=== PATIENT | female | born 1965 | race Caucasian/White ===

== ENCOUNTER 2020-04-15 14:19 | Emergency (ER) | payer OTHER ==
[2020-04-15 15:00] LABS: BASOPHILS % (AUTO) 0.7 %; EOSINOPHILS # (AUTO) 0.2 10^3/uL (0.0-0.7); EOSINOPHILS % (AUTO) 3.4 %; HGB - HEMOGLOBIN 14.1 g/dL (12.0-16.0); LYMPHOCYTES # (AUTO) 2.7 10^3/uL (1.5-3.5); LYMPHOCYTES % (AUTO) 45.8 %; MEAN CORPUSCULAR HEMOGLOBIN 30.2 pg (27.0-31.0); MEAN CORPUSCULAR HGB CONC 33.7 g/dL (32.0-36.0); MEAN CORPUSCULAR VOLUME 89.7 fL (81.0-99.0); MEAN PLATELET VOLUME 8.7 fL (7.9-10.8); MONOCYTES # (AUTO) 0.5 10^3/uL (0.0-1.0); MONOCYTES % (AUTO) 7.7 %; NEUTROPHILS # (AUTO) 2.5 10^3/uL (1.5-6.6); NEUTROPHILS % (AUTO) 42.1 %; PLT - PLATELET COUNT 292 10^3/uL (130-450); RED BLOOD COUNT 4.67 10^6/uL (4.20-5.40); RED CELL DISTRIBUTION WIDTH 13.6 % (12.0-15.0); WHITE BLOOD COUNT 5.9 x10^3/uL (4.8-10.8)
[2020-04-15 15:10] LABS: ALBUMIN 4.5 g/dL (3.2-5.5); ALBUMIN/GLOBULIN RATIO 1.3 (1.0-2.2); BILIRUBIN,TOTAL 1.5 mg/dL (0.2-1.0); CALCIUM 9.8 mg/dL (8.5-10.3); CREATININE 0.7 mg/dL (0.4-1.0); TOTAL PROTEIN 7.9 g/dL (6.7-8.2)
[2020-04-15 15:21] LABS: BILIRUBIN,URINE NEGATIVE (NEGATIVE); GLUCOSE, URINE (UA) NEGATIVE (NEGATIVE); KETONES,URINE (UA) NEGATIVE (NEGATIVE); LEUKOCYTE ESTERASE, URINE TRACE (NEGATIVE); NITRITE,URINE NEGATIVE (NEGATIVE); OCCULT BLOOD,URINE TRACE-INTA (NEGATIVE); PH,URINE 5.5 PH (5.0-7.5); PROTEIN,URINE NEGATIVE (NEGATIVE); UROBILINOGEN,URINE 0.2 (NORMAL) E.U./dL (NORMAL)
[2020-04-15 15:23] LABS: CLARITY,URINE CLEAR (CLEAR)
[2020-04-15 15:45] LABS: BACTERIA,URINE None Seen /HPF (None Seen); RBC,URINE 0-5 /HPF (0-5); SQUAMOUS EPITHELIAL CELL,UR RARE Squamous (<= Few)
--- NOTE | 2020-04-15 17:39 | ED Physician Documentation ---
History of Present Illness - Stated complaint Stated Complaint: ABD PX - RT SIDE - Chief complaint Chief Complaint: Abd Pain - History obtained from History obtained from: Patient, Family - History of Present Illness Timing: How many days ago (5) Pain level max: 5 Pain level now: 3 - Additonal information Additional information: RLQ abd/pelvic pain for 5 days. Patient states that she has been menopausal for approximately 5 years. No vomiting. No diarrhea. Nothing makes it better or worse. Has a history of a right-sided [place] No follow-up was performed. No vaginal bleeding or spotting. Nothing makes it better or worse Review of Systems Constitutional: denies: Fever, Chills GI: denies: Vomiting, Diarrhea : reports: Other (No changes in sexual partners). denies: Dysuria, Frequency, Hesitancy, Hematuria, Discharge, Vaginal bleeding Skin: denies: Rash Musculoskeletal: denies: Neck pain, Back pain Neurologic: denies: Headache PD PAST MEDICAL HISTORY - Past Medical History Past Medical History: No - Past Surgical History Past Surgical History: No - Allergies Allergies/Adverse Reactions: Allergies Allergy/AdvReac Type Severity Reaction Status Date / Time No Known Drug Allergies Allergy Verified 04/15/20 14:27 - Living Situation Living Situation: reports: With family Living Arrangement: reports: At home - Social History Does the pt smoke?: No Does the pt have substance abuse?: No - Family History Family history: reports: Non contributory PD ED PE NORMAL - Vitals Vital signs reviewed: Yes - General General: Alert and oriented X 3, No acute distress, Well developed/nourished - HEENT HEENT: Moist mucous membranes, Pharynx benign - Neck Neck: Supple, no meningeal sign - Cardiac Cardiac: RRR, Strong equal pulses - Respiratory Respiratory: No respiratory distress, Clear bilaterally - Abdomen Abdomen: Soft, Non distended, Other (Tender to palpation right lower quadrant and right pelvic. No peritoneal signs.) - Back Back: No spinal TTP - Derm Derm: Warm and dry - Extremities Extremities: No edema, No calf tenderness / cord - Neuro Neuro: Alert and oriented X 3 - Psych Psych: Normal mood, Normal affect Results - Vitals Vitals: Vital Signs - 24 hr 04/15/20 04/15/20 04/15/20 14:28 16:30 19:19 Temperature 37 C Heart Rate 74 76 66 Respiratory 16 16 18 Rate Blood Pressure 150/72 H 128/76 137/88 H O2 Saturation 99 100 98 04/15/20 19:45 Temperature Heart Rate 63 Respiratory 18 Rate Blood Pressure 129/86 H O2 Saturation 98 Oxygen O2 Source Room air - Labs Labs: Laboratory Tests 04/15/20 04/15/20 04/15/20 14:50 14:50 14:50 WBC 5.9 RBC 4.67 Hgb 14.1 Hct 41.9 MCV 89.7 MCH 30.2 MCHC 33.7 RDW 13.6 Plt Count 292 MPV 8.7 Neut # (Auto) 2.5 Lymph # (Auto) 2.7 [place] # (Auto) 0.5 Eos # (Auto) 0.2 Baso # (Auto) 0.0 Absolute Nucleated RBC 0.00 Nucleated RBC % 0.0 Sodium 139 Potassium 3.8 Chloride 102 Carbon Dioxide 26 Anion Gap 11.0 BUN 13 Creatinine 0.7 Estimated GFR (MDRD) 87 L Glucose 90 Calcium 9.8 Total Bilirubin 1.5 H AST 19 ALT 26 Alkaline Phosphatase 53 Total Protein 7.9 Albumin 4.5 Globulin 3.4 Albumin/Globulin Ratio 1.3 Lipase 34 CA 125 Antigen 7.5 Urine Color Urine Clarity Urine pH Ur Specific Tow Urine Protein Urine Glucose (UA) Urine Ketones Urine Occult Blood Urine Nitrite Urine Bilirubin Urine Urobilinogen Ur Leukocyte Esterase Urine RBC Urine WBC Ur Squamous Epith Cells Urine Bacteria Ur Microscopic Review Urine Culture Comments 04/15/20 15:13 WBC RBC Hgb Hct MCV MCH MCHC RDW Plt Count MPV Neut # (Auto) Lymph # (Auto) [place] # (Auto) Eos # (Auto) Baso # (Auto) Absolute Nucleated RBC Nucleated RBC % Sodium Potassium Chloride Carbon Dioxide Anion Gap BUN Creatinine Estimated GFR (MDRD) Glucose Calcium Total Bilirubin AST ALT Alkaline Phosphatase Total Protein Albumin Globulin Albumin/Globulin Ratio Lipase CA 125 Antigen Urine Color YELLOW Urine Clarity CLEAR Urine pH 5.5 Ur Specific Tow <=1.005 Urine Protein NEGATIVE Urine Glucose (UA) NEGATIVE Urine Ketones NEGATIVE Urine Occult Blood TRACE-INTA Urine Nitrite NEGATIVE Urine Bilirubin NEGATIVE Urine Urobilinogen 0.2 (NORMAL) Ur Leukocyte Esterase TRACE H Urine RBC 0-5 Urine WBC 4-5 Ur Squamous Epith Cells RARE Squamous Urine Bacteria None Seen Ur Microscopic Review INDICATED Urine Culture Comments INDICATED - Rads (name of study) Pelvic ultrasound Radiology: Prelim report reviewed, EMP read contemporaneously, See rad report (No acute abnormality) CT abdomen pelvis Radiology: Prelim report reviewed, EMP read contemporaneously, See rad report (N o acute abnormality) PD MEDICAL DECISION MAKING - ED course Complexity details: reviewed results, re-evaluated patient, considered dif ferential, d/w patient, d/w family ED course: 54-year-old female with abdominal pain. Unclear etiology. No acute lab findings. No acute findings on CT or ultrasound. We will continue supportive care and have her follow-up with her doctor for further care. Patient is well- appearing, nontoxic. Afebrile. Patient counseled regarding signs and symptoms for which I believe and urgent re-evaluation would be necessary. Patient with good understanding of and agreement to plan and is comfortable going home at this time This document was made in part using voice recognition software. While efforts are made to proofread this document, sound alike and grammatical errors may occur. Departure - Departure Disposition: 01 Home, Self Care Clinical Impression: Abdominal pain Qualifiers: Abdominal location: unspecified location Qualified Code(s): R10.9 - Unspecified abdominal pain Condition: Good Instructions: ED Abdominal Pain Unkn Cause Follow-Up: Your,doctor in 1 week [Other] Comments: The cause of your symptoms is unclear. There are no acute findings on your laboratory testing, CT scan or ultrasound. This should improve over the next few days. Return if you worsen. Follow-up with your doctor for further care. Discharge Date/Time: 04/15/20 19:52
[2020-04-15] MEDS ORDERED: IOVERSOL 320 100 ML VIAL IVP ONE ×2 (17:45→19:01)
--- NOTE | 2020-04-15 18:46 | Ultrasound Report ---
PROCEDURE: Pelvic w/Transvag+Doppler Comp INDICATIONS: pelvic pain, R TECHNIQUE: Real-time scanning was performed of the pelvic organs, with image documentation. Additional endovagi nal scanning was necessary due to incomplete visualization of the adnexal and endometrial structures by transabdominal scanning. COMPARISON: None. FINDINGS: Transabdominal scanning: Limited scanning through the kidneys shows no hydronephrosis. No pathologi c free abdominal or pelvic fluid. Endovaginal scanning: Uterus: Uterus is normal in size at 5.9 x 3.2 x 4.7 cm. The endometrium measures 2 mm in combined t hickness. A small uterine fibroid, located right posterior subserosal, measures 1.1 cm in maximum di mension. Ovaries: Right ovary measures 2.5 x 2.0 x 1.9 cm. Left ovary is not visualized secondary to overlyin g bowel gas. There is normal intraovarian flow in the right ovary. IMPRESSION: Unremarkable right ovary with no evidence of torsion. Incidental small fibroid. Otherwise unremarkabl e pelvic ultrasound. Reviewed by: Lloyd Vines MD on 04/15/2020 6:45 PM PDT Approved by: Lloyd Vines MD on 04/15/2020 6:45 PM PDT Station ID: [id number]
--- NOTE | 2020-04-15 19:12 | CT Report ---
PROCEDURE: Abdomen/Pelvis W INDICATIONS: RLQ abd pain CONTRAST: IV CONTRAST: Optiray 320 ml: 100 PO CONTRAST: *NO PO CONTRAST TECHNIQUE: After the administration of oral and intravenous contrast, 5 mm thick sections acquired from the diap hragms to the symphysis. 5 mm thick coronal and sagittal reformats were acquired. For radiation dos e reduction, the following was used: automated exposure control, adjustment of mA and/or kV accordin g to patient size. COMPARISON: None. FINDINGS: Image quality: Excellent. ABDOMEN: Lung bases: Lung bases are clear. Heart size is normal. Solid organs: Liver and spleen are normal in size and enhancement. Mild hepatic steatosis. Gallbladd er gallbladder is unremarkable. Biliary system is non dilated. Pancreas enhances normally. No adre nal nodules. Kidneys demonstrate normal size and enhancement, without hydronephrosis. Peritoneum and bowel: Bowel loops demonstrate normal wall thickness and caliber. No free fluid or a ir. Nodes and vessels: No retroperitoneal or mesenteric adenopathy by size criteria. Aorta and inferior vena cava are normal in size. Miscellaneous: No ventral hernias. PELVIS: Genitourinary: Bladder wall thickness is normal. Miscellaneous: No inguinal hernias or adenopathy. Bones: No suspicious bony lesions. No vertebral body compression fractures. IMPRESSION: No evidence acute abdominal process. Mild hepatic steatosis. Reviewed by: Lloyd Vines MD on 04/15/2020 7:11 PM PDT Approved by: Lloyd Vines MD on 04/15/2020 7:11 PM PDT Station ID: [id number]
[2020-04-15 19:46] VITALS: BP 129/86
== END 2020-04-15 19:52 | disposition home or self-care (01) ==
LOC: ED 14:19
DX: R10.31 Right lower quadrant pain (principal); D25.2 Subserosal leiomyoma of uterus; K76.0 Fatty (change of) liver, not elsewhere classified
CPT/HCPCS: 36415; 74177; 76830; 76856; 80053; 81001; 83690; 85025; 86304; 87086; 93975; 99284; Q9967; 81003

== ENCOUNTER 2023-08-20 08:15 | Outpatient (CLI) | payer OTHER | END 2023-08-20 08:30 | disposition home or self-care (01) | LOC: LAB.N 08:15 | PROVIDERS: ATTEND Specialist | DX: R30.0 Dysuria (principal) | CPT/HCPCS: 87086; 87181 ==

== ENCOUNTER 2023-10-21 11:53 | Emergency (ER) | payer OTHER ==
--- NOTE | 2023-10-21 12:20 | ED Physician Documentation ---
History of Present Illness - Stated complaint Stated Complaint: COUGH,BACK PX - Chief complaint Chief Complaint: Cardiac - History obtained from History obtained from: Patient - Additonal information Additional information: Relatively healthy 57-year-old woman with history of remote pneumonia has had a cough for 2 weeks is minimally productive. Over the last couple of days has developed some right upper back pain from the coughing that she feels is reminiscent of her prior pneumonia. Today she was sitting on the toilet and had a syncopal episode hitting her face on the ground. She had a profuse bloody nose which is now resolved. PD PAST MEDICAL HISTORY - Past Medical History Past Medical History: No - Past Surgical History Past Surgical History: Yes General: Appendectomy - Present Medications Home Medications: Ambulatory Orders Medication Instructions Recorded Confirmed Benzonatate [Tessalon] 200 mg PO TID PRN #20 cap 10/21/23 - Allergies Allergies/Adverse Reactions: Allergies Allergy/AdvReac Type Severity Reaction Status Date / Time No Known Drug Allergies Allergy Verified 10/21/23 12:27 - Social History Does the pt smoke?: No Smoking Status: Never smoker Does the pt drink ETOH?: No Does the pt have substance abuse?: No - Immunizations Immunizations are current?: Yes PD ED PE NORMAL - Vitals Vital signs reviewed: Yes - General General: Alert and oriented X 3, No acute distress, Other (Frequent bronchitic coughing) - HEENT HEENT: PERRL, EOMI, Other (Nasal bridge is tender and swollen with sequela of resolved bilateral epistaxis. No other facial bony tenderness.) - Neck Neck: Supple, no meningeal sign, No bony TTP, C-Spine cleared by NEXUS criteria - Cardiac Cardiac: RRR, No murmur - Respiratory Respiratory: No respiratory distress, Clear bilaterally - Abdomen Abdomen: Non tender - Extremities Extremities: No edema, No calf tenderness / cord - Neuro Neuro: Alert and oriented X 3, Normal speech Results - Vitals Vitals: Vital Signs - 24 hr 10/21/23 10/21/23 10/21/23 12:05 13:57 14:54 Temperature 36.7 C Heart Rate 105 H 81 81 Respiratory 16 16 24 Rate Blood Pressure 118/73 124/81 H 121/82 H O2 Saturation 95 96 96 Oxygen O2 Source Room air - EKG (time done) 1218 EKG releavant findings:: EKG personally interpreted by author of this note. Relevant findings are: Rate: Rate (enter#) (90) Rhythm: NSR [place]: Normal Intervals: Normal NC QRS: Normal Ischemia: Non specific changes. No: ST elevation c/w ischemia Computer interpretation: Agree with computer - Labs Labs: Laboratory Tests 10/21/23 10/21/23 12:40 12:40 WBC 4.3 L RBC 4.66 Hgb 13.7 Hct 40.7 MCV 87.3 MCH 29.4 MCHC 33.7 RDW 14.1 Plt Count 244 MPV 8.7 Neut # (Auto) 2.8 Lymph # (Auto) 0.8 L [place] # (Auto) 0.6 Eos # (Auto) 0.1 Baso # (Auto) 0.0 Absolute Nucleated RBC 0.00 Nucleated RBC % 0.0 Sodium 134 L Potassium 3.8 Chloride 102 Carbon Dioxide 22 Anion Gap 10.0 BUN 10 Creatinine 0.6 Estimated GFR (MDRD) 103 Glucose 100 Calcium 9.2 Total Bilirubin 0.9 AST 23 ALT 27 Alkaline Phosphatase 61 Total Protein 7.5 Albumin 4.1 Globulin 3.4 Albumin/Globulin Ratio 1.2 - Rads (name of study) CT of the head and face are without abnormality. Relevant Findings:: Final report received, EMP independent interpretation of test CXR Relevant Findings:: Final report received, EMP independent interpretation of test PD Medical Decision Making - ED course ED course: She has been sick with a cough and worries that she might have pneumonia. That said her chest x-ray and CBC are normal without infiltrate or elevated white count. There is no anemia either. CMP grossly unremarkable and there was a concern that she may have had a head injury or broken her nose given the circums tances, but CT imaging of the head and face were negative. Departure - Departure Disposition: 01 Home, Self Care Clinical Impression: Viral bronchitis Syncope Qualifiers: Encounter type: initial encounter Facial contusion Qualifiers: Encounter type: initial encounter Qualified Code(s): S00.83XA - Contusion of other part of head, initial encounter Condition: Good Record reviewed to determine appropriate education?: Yes Instructions: ED Fainting Unkn Cause, ED Viral Syndrome Prescriptions: Benzonatate [Tessalon] 200 mg PO TID PRN #20 cap PRN Reason: Cough Comments: Tylenol and/or ibuprofen as needed for aches and pains. I am writing something for the cough as well. Drink plenty of fluids. Return for new or worsening symptoms. Follow-up with your doctor later this week or early next week for recheck. Forms: PCP List
[2023-10-21 12:49] LABS: BASOPHILS % (AUTO) 0.5 %; EOSINOPHILS # (AUTO) 0.1 10^3/uL (0.0-0.7); EOSINOPHILS % (AUTO) 1.4 %; HCT - HEMATOCRIT 40.7 % (37.0-47.0); HGB - HEMOGLOBIN 13.7 g/dL (12.0-16.0); LYMPHOCYTES # (AUTO) 0.8 10^3/uL (1.5-3.5); LYMPHOCYTES % (AUTO) 18.1 %; MEAN CORPUSCULAR HEMOGLOBIN 29.4 pg (27.0-31.0); MEAN CORPUSCULAR HGB CONC 33.7 g/dL (32.0-36.0); MEAN CORPUSCULAR VOLUME 87.3 fL (81.0-99.0); MEAN PLATELET VOLUME 8.7 fL (7.9-10.8); MONOCYTES # (AUTO) 0.6 10^3/uL (0.0-1.0); MONOCYTES % (AUTO) 13.7 %; NEUTROPHILS # (AUTO) 2.8 10^3/uL (1.5-6.6); NEUTROPHILS % (AUTO) 65.8 %; PLT - PLATELET COUNT 244 10^3/uL (130-450); RED BLOOD COUNT 4.66 10^6/uL (4.20-5.40); RED CELL DISTRIBUTION WIDTH 14.1 % (12.0-15.0); WHITE BLOOD COUNT 4.3 x10^3/uL (4.8-10.8)
--- NOTE | 2023-10-21 12:59 | XRAY Report ---
PROCEDURE: Chest 1V INDICATIONS: cough TECHNIQUE: One view of the chest was acquired. COMPARISON: None. FINDINGS: Surgical changes and devices: None. Lungs and pleura: No dense consolidation or pleural effusion. Mediastinum: Normal heart size Bones and chest wall: No suspicious bony lesions. Overlying soft tissues appear unremarkable. IMPRESSION: No acute abnormality on this single view portable radiograph. Reviewed by: Vickey Camp MD on 10/21/2023 12:58 PM PST Approved by: Vickey Camp MD on 10/21/2023 12:58 PM PST Station ID: [id number]
[2023-10-21 13:08] LABS: ALBUMIN 4.1 g/dL (3.2-5.5); ALBUMIN/GLOBULIN RATIO 1.2 (1.0-2.2); BILIRUBIN,TOTAL 0.9 mg/dL (0.2-1.0); CALCIUM 9.2 mg/dL (8.5-10.3); CREATININE 0.6 mg/dL (0.6-1.3); POTASSIUM 3.8 mmol/L (3.5-4.5); TOTAL PROTEIN 7.5 g/dL (6.4-8.9)
[2023-10-21 14:01] VITALS: O2SAT 96
--- NOTE | 2023-10-21 14:54 | CT Report ---
PROCEDURE: Head WO INDICATIONS: head inj TECHNIQUE: Noncontrast 4.5 mm thick angled axial sections acquired from the foramen magnum to the vertex. For r adiation dose reduction, the following was used: automated exposure control, adjustment of mA and/or kV according to patient size. COMPARISON: None. FINDINGS: Image quality: Excellent. CSF spaces: Basal cisterns are patent. No extra-axial fluid collections. Ventricles are normal in size and shape. Brain: No midline shift. No intracranial masses or hemorrhage. Saldivar-white matter interface is norm al. Skull and face: Calvarium and visualized facial bones are intact, without suspicious lesions. Sinuses: Visualized sinuses and mastoids are clear. IMPRESSION: No acute intracranial pathology. Reviewed by: Lamine Loza MD on 10/21/2023 2:53 PM PST Approved by: Lamine Loza MD on 10/21/2023 2:53 PM [facility] Station ID: [id number]
--- NOTE | 2023-10-21 14:55 | CT Report ---
PROCEDURE: Maxillofacial WO INDICATIONS: face inj TECHNIQUE: Noncontrast 1.5 mm thick axial images acquired from the mandible through the frontal sinuses, with co yaneth and sagittal reformatting. For radiation dose reduction, the following was used: automated ex posure control, adjustment of mA and/or kV according to patient size. COMPARISON: None. FINDINGS: Image quality: Degraded by dental artifact.. Bones and teeth: Orbital bentley are intact. Sinus bentley show no fracture or deformity. Nasal bones and septum are intact. Visualized portions of the mandible demonstrate no fractures or subluxation. Zygomatic arches are intact. Pterygoid plates are intact. Visualized portions of the skull base an d auditory canals are intact. Sinuses: Paranasal sinuses are aerated, without fluid levels, mucosal thickening, or mucoceles. Mas toid air cells are aerated. Soft tissues: No edema, masses, or fluid collections. No enlarged lymph nodes. No soft tissue lace rations or debris. Vascular: Visualized vascular structures appear normal in the absence of contrast. Bony vascular fo ramina and canals are intact. IMPRESSION: No fracture. Reviewed by: Lamine Loza MD on 10/21/2023 2:54 PM PST Approved by: Lamine Loza MD on 10/21/2023 2:54 PM PST Station ID: [id number]
[2023-10-21 15:08] VITALS: BP 121/86
== END 2023-10-21 15:13 | disposition home or self-care (01) ==
LOC: ED 11:53
DX: J20.8 Acute bronchitis due to other specified organisms (principal); R55 Syncope and collapse; S00.83XA Contusion of other part of head, initial encounter; W19.XXXA Unspecified fall, initial encounter
CPT/HCPCS: 36415; 80053; 85025; 93005; 99284

== ENCOUNTER 2024-03-12 14:16 | Emergency (ER) | payer OTHER ==
[2024-03-12 14:37] VITALS: BP 128/79; O2SAT 98
--- NOTE | 2024-03-12 17:08 | XRAY Report ---
PROCEDURE: Foot 3+V BL INDICATIONS: TRIPPED/TWISTED/PAIN + TENDERNESS L ANKLE TECHNIQUE: 3 views of the foot were acquired. COMPARISON: None. FINDINGS: Bones: No fractures or dislocations. No suspicious bony lesions. On the left, there is severe firs t MTP degenerative arthritis. No significant arthritic change on the right. Soft tissues: No tibiotalar joint effusion. Achilles tendon appears normal. IMPRESSION: 1. No acute fracture or dislocation involving both feet. 2. Severe left first MTP degenerative arthritis. Reviewed by: Lloyd Vines MD on 03/12/2024 5:06 PM PDT Approved by: Lloyd Vines MD on 03/12/2024 5:06 PM PDT Station ID: [id number]
--- NOTE | 2024-03-12 17:33 | ED Physician Documentation ---
PD HPI LOWER EXT INJURY - Stated complaint Stated Complaint: GLF,BILAT FOOT INJ - Chief complaint Chief Complaint: Ext Problem - Additional information Additional information: 58-year-old female with no pertinent past medical history presents emergency department for bilateral foot pain. Patient says that she tripped and fell couple stairs today originally she did not feel any pain she is feeling fine and then she started to notice increased pain as the day went on to both feet. Ankles feel fine she is able to ambulate but with difficulty did not hit her head no loss of consciousness no complaints also on the body. 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 : None HEENT: None Psych: None Musculoskeletal: None Derm: None - Past Surgical History Past Surgical History: Yes General: Appendectomy - Present Medications Home Medications: Ambulatory Orders Medication Instructions Recorded Confirmed No Known Home Medications 03/12/24 03/12/24 - Allergies Allergies/Adverse Reactions: Allergies Allergy/AdvReac Type Severity Reaction Status Date / Time No Known Drug Allergies Allergy Verified 03/12/24 14:31 - Social History Does the pt smoke?: No Smoking Status: Never smoker Does the pt drink ETOH?: No Does the pt have substance abuse?: No - Immunizations Immunizations are current?: Yes PD ED PE NORMAL - Vitals Vital signs reviewed: Yes - General General: Alert and oriented X 3, No acute distress, Well developed/nourished - HEENT HEENT: Atraumatic, PERRL - Derm Derm: Normal color, Warm and dry, No rash - Extremities Extremities: Other (bilateral feet: able to flex and extend both ankles without difficulty, tenderness to the dorsalis portion of both feet, no swelling no bruising) - Psych Psych: Normal mood, Normal affect Results - Vitals Vitals: Vital Signs - 24 hr 03/12/24 14:25 Temperature 36.5 C Heart Rate 78 Respiratory 16 Rate Blood Pressure 128/79 O2 Saturation 98 Oxygen O2 Source Room air - Rads (name of study) Bilateral feet x-rays Relevant Findings:: Final report received, EMP independent interpretation of test, Other (No acute fracture dislocation involving both feet severe left first MTP degenerative arthritis.) PD Medical Decision Making - ED course ED course: X-rays were completed of the patient's feet bilaterally she is unable to loca lize any pinpoint tenderness to either feet but just says that the top of both of her feet are quite tender and painful. X-rays were negative for any acute bony abnormalities or findings I do not believe that there is any fractures at this point in time she is told to repeat imaging in 7 to 10 days if pain gets any worse or does not improve. Jarrett wrap applied to both feet she was offered Tylenol ibuprofen but said that she would take some at home and told to follow- up with her primary care provider. Departure - Departure Disposition: Home, Self Care Clinical Impression: Foot contusion, Fall Instructions: ED Contusion Foot Comments: Thank you for trusting us with your care, we have evaluated you for. We have completed x-rays of both feet we are not seeing any fractures at this point in time if after 7 to 10 days the pain has not improved or gotten worse please come back to the ER or to your primary care provider for further imaging and further evaluation of possible fracture. You can alternate between Tylenol ibuprofen for pain and discomfort we have applied Jarrett wrap for compression to help with swelling and pain. Apply ice 20 minutes on 1 hour off keep elevated above your heart to help with swelling. Forms: PCP List Discharge Date/Time: 03/12/24 17:50
== END 2024-03-12 17:50 | disposition home or self-care (01) ==
LOC: ED 14:16
DX: S90.32XA Contusion of left foot, initial encounter (principal); S90.31XA Contusion of right foot, initial encounter; W01.0XXA Fall on same level from slipping, tripping and stumbling without subsequent striking against object, initial encounter
CPT/HCPCS: 99283